=== PATIENT | male | born 1970 | race African-American/Black ===

== ENCOUNTER 2016-07-20 19:08 | Emergency (ER) ==
--- NOTE | 2016-07-20 21:09 | PROVIDER DOCUMENTATION ---
HPI-Musculoskeletal Pain/Inj - GENERAL Source: patient - HX OF PRESENT ILLNESS-MUSKULOSKELTAL Quality of Pain: reports: aching, cramping Severity in ED: moderate Onset/Duration: 1 week ago Timing: still present, getting worse Modifying Factors: improves with: immobilization, lying down. worse with: exercise, massage, movement, palpation Any recent injury?: No - LOWER EXTREMITY PAIN/INJURY Lower Extremities Pain: knee: right Context / Method of Injury: reports: unknown Associated Symptoms: reports: numbness in legs/feet, weakness in legs/feet. denies: loss of bladder control, loss of bowel control, lower back pain, muscle spasms, sensory/motor loss, tingling in legs/feet <Rio Rg - Last Filed: 07/20/16 21:17> <Maricel Rios - Last Filed: 07/20/16 21:39> - GENERAL Chief Complaint: Extremity Pain Stated Complaint: RT KNEE PAIN Time Seen by Provider: 07/20/16 20:53 - HX OF PRESENT ILLNESS-MUSKULOSKELTAL Nature of Presenting Problem: Pt is a 45 yom who presents to ER with CC of R knee pain that has gotten worse over the past week. Pt is morbidly obese and denies any injury that could cause his pain. Pt reports that it is becoming increasingly difficult to bear weight on his R leg and that it hurts most when he's trying to press the gas pedal in his car. (Rio Rg) Review of Systems - Adult - REVIEW OF SYSTEMS - ADULT Constitutional: denies: chills, fever, fatique, night sweats, weight gain, weight loss Eyes: reports: no symptoms reported Ears, Nose, Mouth & Throat: reports: no symptoms reported Cardiovascular: denies: chest pain, edema, heart murmur, irregular heart rate, orthopnea, palpitations, poor circulation, PND, syncope Respiratory: denies: chronic cough, cough, dyspnea on exertion, excessive sputum production, hemoptysis, pleurisy, shortness of breath, wheezing Gastrointestinal: reports: no symptoms reported Genitourinary: reports: no symptoms reported Musculoskeletal: reports: bone pain, frequent leg cramps, joint pain, muscle aches, muscle weakness. denies: back pain, joint swelling, neck pain Integumentary: reports: no symptoms reported Neurological: reports: no symptoms reported Psychiatric: reports: no symptoms reported Endocrine: reports: no symptoms reported Hematologic/Lymphatic: reports: no symptoms reported Allergic/Immunologic: reports: no symptoms reported All Other Systems: Reviewed and Negative <Rio Rg - Last Filed: 07/20/16 21:17> Past History - Adult - PAST MEDICAL HISTORY-ADULT Review of Records: reports: Nursing Assessment Review, Medications Reviewed Cardiovascular: reports: HTN. denies: cardiac disease - IMMUNIZATION STATUS Childhood Immunizations: See Nurse Assessment Flu Vaccine: See Nurse Assessment - FAMILY HISTORY Family History: other (no hz of gout or other arthropathy) <Eleonora Rgsh - Last Filed: 07/20/16 21:17> Physical Exam-Injury Related - Physical Exam-Injury Related Initial Vital Signs Reviewed: Yes General Appearance: appears well, alert, moderate distress, obese. negative: cachetic, thin, slow to respond, obtunded, combative Respiratory: chest non-tender, lungs clear, normal breath sounds. negative: respiratory distress, decreased breath sounds, accessory muscle use, wheezing Cardiovascular: normal peripheral pulses, regular rate, rhythm. negative: bradycardia, tachycardia, irregularly irregular Peripheral Pulses: radial (R): 2+, radial (L): 2+, carotid (R): 2+, carotid (L) : 2+, femoral (R): 2+, femoral (L): 2+, dorsalis-pedis (R): 2+, dorsalis-pedis ( L): 2+ Back Exam: no CVA tenderness, no vertebral tenderness. negative: CVA tenderness , decreased range of motion, muscle spasm, swelling, vertebral tenderness Extremity: tenderness (anterior R knee tenderness on palpation). negative: normal range of motion, non-tender, normal gait, deformity, erythema, inflammation, pulse deficit, pedal edema, slow capillary refill, swelling (Pt is too obese to appreciate any acute swelling) Integumentary: normal color, warm/dry, tenderness. negative: ecchymosis, erythema, swelling, warm, abrasion, contusion(s), laceration Neurologic: grossly normal, no motor/sensory deficits. negative: facial droop, focal weakness, motor weakness, sensory deficit Psych/Mental Status: normal thought content, normal thought process, oriented x 3, anxious <RgRio - Last Filed: 07/20/16 21:17> Progress <Rio Rg - Last Filed: 07/20/16 21:17> - XRAY 1 XRAY: Right XRAY Study: Knee Impression: Need Further Study (possible tibial plateau fx? reviewed c Dr. Garcia) - CT/MRI 1 CT Study: Lower Ext Impression: Normal (no fx per radiology) <Maricel Rios - Last Filed: 07/20/16 21:39> - PLAN OF CARE/RESULTS Progress/Plan/Lab Results: POC: X-ray/CT (Rio Rg) Vital Signs Temp Pulse Resp BP Pulse Ox 07/20/16 19:27 98.4 F 85 18 179/90 100 No Known Allergies Allergy (Verified 07/20/16 20:41) Cholecalciferol (Vitamin D3) [Vitamin D3] 5,000 unit PO 07/20/16 Orders Category Date Time Status EXTREM LOWER W/O CONTRAST [CT] Stat Exams 07/20/16 21:02 Taken KNEE 3 VIEWS RIGHT [RAD] Stat Exams 07/20/16 19:37 Taken (Maricel Rios) Procedures - SPLINTING Right Lower Extremity Pre-Procedure Neurovascular Exam: Intact Pre-Fabricated Splint: Basilio Wrap Applied By: ED Nurse Assisted By: musical engineer Post Procedure Neurovascular Exam: Intact <Maricel Rios - Last Filed: 07/20/16 21:39> Departure <Rio Rg - Last Filed: 07/20/16 21:17> - Departure Time of Disposition Order: 21:37 Certified Medical Emergency: Emergent <Maricel Rios - Last Filed: 07/20/16 21:39> - Departure DIAGNOSIS: Knee pain, right Qualifiers: Chronicity: acute Qualified Code(s): M25.561 - Pain in right knee Disposition: HOME 01 Condition: Stable Additional Instructions: Follow up with Dr. Schroeder, orthopedic if you continue to have pain ED Follow Up Instructions: You have been treated by a care provider in the Emergency Department. These instructions are being provided to you so you can have an understanding of how to care for yourself upon discharge. Upon discharge from the Emergency Department, you are responsible for making arrangements for follow-up care by a physician of your choice. Take all prescribed medications as directed. Return to the Emergency Department immediately for any new or worsening symptoms. You may call the Physician Referral phone number at [phone] to obtain a list of Physicians who are taking new patients. Prescriptions: Diclofenac Sodium 50 mg PO Q8-12H PRN PRN #30 tablet.dr PALMA Reason: Pain Cyclobenzaprine [Flexeril] 10 mg PO TID #20 tablet Famotidine [Pepcid] 20 mg PO DAILY #20 tablet Referrals: None,PCP [Primary Care Provider] - Veronica Schroeder MD [STAFF PHYSICIAN] - Attestation - Scribe Verification/Attestation Scribe:: Rio Rg Acting as Scribe for:: Maricel Rios Scribe documention review:: This chart was documented by a scribe and accurately reflects the service the provider performed and the decisions made by the provider. <Rio Rg - Last Filed: 07/20/16 21:17> - Physician/ TYLER Attestation Patient care was provided by Advanced Practice Provider:: Yes Advanced Practice Provider documentation review:: The Mid-level provider documentation, treatment plan and medical decision making was reviewed by the physician who agrees with all treatment and medical decision making by the MLP. <Maricel Rios - Last Filed: 07/20/16 21:39> Physician Attestation
[2016-07-20] MEDS ORDERED: NORCO-5 PO ONE (21:36)
[2016-07-20] MEDS ORDERED: MOTRIN PO ONE (21:41)
[2016-07-20 21:52] VITALS: BP 180/84
--- NOTE | 2016-07-21 07:49 | Diag Imaging Result Document ---
PROCEDURE NAME: KNEE 3 VIEWS RIGHT - 07/20/2016 RIGHT KNEE THREE VIEWS: FINDINGS: There is bone spurring to the patella. No fracture. No dislocation. IMPRESSION: No acute bony injury.
--- NOTE | 2016-07-21 08:17 | Diag Imaging Result Document ---
PROCEDURE NAME: EXTREM LOWER W/O CONTRAST - 07/20/2016 CT OF THE RIGHT KNEE, 07/20/2016: COMPARISON: X-rays from earlier. FINDINGS: Bones are intact and normally aligned. No fracture or subluxation. There is rather severe degenerative spurring at the patella, mostly at the tendinous insertion sites. The ACL and PCL appeared to be intact. Other ligamentous structures are intact as well. There is degenerative narrowing of the medial joint space. IMPRESSION: No fracture or acute injury. Significant degeneration of the knee mostly at the patella and the medial joint compartment.
== END 2016-07-20 21:52 | disposition home or self-care (01) ==
LOC: ED 19:08
DX: M25.561 Pain in right knee (principal); E66.01 Morbid (severe) obesity due to excess calories; M79.1 Myalgia; M62.81 Muscle weakness (generalized); I10 Essential (primary) hypertension
CPT/HCPCS: 73700

== ENCOUNTER 2018-11-07 12:45 | Observation (INO) ==
--- NOTE | 2018-11-07 13:14 | Diag Imaging Result Doc PS360 ---
EXAM: CHEST-1 VIEW HISTORY: chest pain TECHNIQUE: Portable upright chest single view COMPARISON: None. FINDINGS: The lungs are well expanded. The heart is mildly prominent. The vessels are not distended. There are no infiltrates. No effusion identified. IMPRESSION: Mild cardiomegaly. Electronically signed by Alex Zazueta 11/07/2018 1:12 PM
[2018-11-07 13:49] LABS: BASO# 0.01 X1000 (0.0-0.2); BASO% 0.1 % (0.0-0.8); EOS# 0.06 X1000 (0.0-0.7); EOS% 0.7 % (0.0-10.0); HEMATOCRIT 40.3 % (42.0-52.0); HEMOGLOBIN 13.3 g/dL (14.0-18.0); IMM GRAN# 0.02 X1000 (0.0-0.04); IMM GRAN% 0.2 % (0.0-0.5); LYMPH# 1.88 X1000 (1.2-3.4); LYMPH% 20.8 % (20.5-51.1); MCH 25.9 PG (27-31); MCV 78.4 FL (81-99); MONO# 1.09 X1000 (0.11-0.59); MPV 10.9 FL (7.4-10.4); NEUT% 66.2 % (42.2-75.2); PLT 342 X1000 (130-400); RBC 5.14 XMIL (4.7-6.1); RDW 14.2 % (11.5-14.5); WBC 9.06 X1000 (4.8-10.8)
--- NOTE | 2018-11-07 13:59 | EKG Report ---
Test Performed on : 11/07/2018 12:53:41 PM Test Reason : chest pain Blood Pressure : / mmHG Vent. Rate : 103 BPM Atrial Rate : 103 BPM P-R Int : 172 ms QRS Dur : 114 ms QT Int : 376 ms P-R-T Axes : 067 -53 063 degrees QTc Int : 492 ms Sinus tachycardia. Pulmonary disease pattern Left anterior fascicular block Abnormal ECG No previous ECGs available Unconfirmed Result
[2018-11-07 14:08] LABS: AGAP 11; BUN 12 mg/dL (8-22); CHLORIDE 102 mmol/L (98-107); COSMO 275; CREATININE 0.8 mg/dL (0.7-1.2); ESTIMATED GFR > 60; GLUCOSE 126 mg/dL (70-104); POTASSIUM 3.8 mmol/L (3.5-5.1); SODIUM 137 mmol/L (136-145); TCO2 24 mmol/L (25-35)
[2018-11-07 14:09] LABS: ALBUMIN 3.5 g/dL (3.5-5.0); ALKALINE PHOSPHATASE 95 U/L (32-122); GOT 19 U/L (10-34); GPT 22 U/L (10-44); TOTAL BILIRUBIN 0.76 mg/dL (0.20-1.00); TOTAL PROTEIN 6.9 g/dL (6.3-8.3)
--- NOTE | 2018-11-07 14:41 | PROVIDER DOCUMENTATION ---
This chart was entered by Mirta England Scribe, acting as scribe for Catrachito Frederick MD. 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 States pain has been intermittent for 1 week. Does not report shortness of breath or nausea. Location: reports: other (generalized chest) Chest Pain Radiation: reports: arms (left) Quality of Pain: reports: pressure Severity in ED: mild Onset/Duration: 1/2 hour ago Timing: still present Context/Activities at Onset: reports: light activity Associated Symptoms: reports: diaphoresis Aspirin Treatment Today: no aspirin today Similar Symptoms Previously?: Yes Recently Seen Here or By Another Healthcare Provider: No Review of Systems - Adult - REVIEW OF SYSTEMS - ADULT Constitutional: reports: no symptoms reported. denies: chills, fever, fatique Eyes: reports: no symptoms reported Ears, Nose, Mouth & Throat: reports: no symptoms reported Cardiovascular: reports: see HPI, chest pain. denies: heart murmur, palpitations Respiratory: reports: no symptoms reported. denies: cough, shortness of breath, wheezing Gastrointestinal: reports: no symptoms reported Genitourinary: reports: no symptoms reported Musculoskeletal: reports: no symptoms reported Integumentary: reports: no symptoms reported Neurological: reports: no symptoms reported Psychiatric: reports: no symptoms reported Endocrine: reports: no symptoms reported Hematologic/Lymphatic: reports: no symptoms reported Allergic/Immunologic: reports: no symptoms reported All Other Systems: Reviewed and Negative Past History - Adult - PAST MEDICAL HISTORY-ADULT Review of Records: reports: Old Records Reviewed, Nursing Assessment Review, Medications Reviewed, Social history reviewed & non-contributory. Major Childhood Illnesses: reports: denies history Cardiovascular: reports: HTN. denies: cardiac disease Respiratory: reports: denies history Gastrointestinal: reports: denies history Obstetrical/Gynecological: reports: denies history Genitourinary: reports: denies history Musculoskeletal: reports: denies history Neurological: reports: denies history Psychiatric: reports: denies history Endocrine/Immune: reports: denies history Other Conditions: reports: denies history - PRIOR SURGERIES/PROCEDURES Surgical/Procedure History: reports: reviewed, not pertinent - IMMUNIZATION STATUS Childhood Immunizations: See Nurse Assessment Flu Vaccine: See Nurse Assessment - FAMILY HISTORY Family History: other (no hz of gout or other arthropathy) - SOCIAL HISTORY Smoking: denies Substance Use: denies Physical Exam-General - PHYSICAL EXAM-ADULT Initial Vital Signs Reviewed: Yes - CONSTITUTIONAL General Appearance: alert, no apparent distress, obese. negative: lethargic - HEAD, EARS, NOSE, MOUTH & THROAT HENMT: normocephalic/atraumatic, moist mucous membranes. negative: angioedema, hearing deficit - RESPIRATORY Respiratory: chest non-tender, lungs clear, normal breath sounds. negative: rales, rhonchi, wheezing - CARDIOVASCULAR Cardiovascular: normal peripheral pulses, regular rate, rhythm. negative: tachycardia, systolic murmur - GASTROINTESTINAL (ABDOMEN) Abdominal Exam: normal bowel sounds, non tender, soft. negative: guarding, rebound - MUSCULOSKELETAL Extremity: non-tender, normal inspection. negative: deformity, erythema, swelling - SKIN Integumentary: normal color, normal turgor, warm/dry. negative: ecchymosis, erythema, jaundice, rash - NEUROLOGIC Neurologic: grossly normal. negative: aphasia, facial droop - PSYCHIATRIC Psych/Mental Status: normal mood/affect, oriented x 3. negative: anxious - HEART Score HEART Score: History: Slightly Suspicious HEART Score: ECG: Non-Specific Repolarization Disturbance/LBBB/PM HEART Score: Age: 45-65 Years HEART Score: Risk Factors for Atherosclerotic Disease: 1 or 2 Risk Factors HEART Score: Troponin: < or = Normal Limit Total HEART Score:: 3 Progress - PLAN OF CARE/RESULTS Result Diagrams: 11/07/18 13:30 11/07/18 13:30 - EKG 1 Time of EKG reading by physician:: 12:53 EKG Read and Signed by:: Catrachito Frederick EKG Interpretation (*Must complete 3 of following elements*): Abnormal Rate: 103 Rhythm: sinus tachycardia [place]: normal [place] Interval: normal Comments: pulmonary disease pattern; left anterior fascicular block 2 Time of EKG reading by physician:: 17:30 EKG Read and Signed by:: Catrachito Frederick EKG Interpretation (*Must complete 3 of following elements*): Abnormal (nonspecific intraventricular conduction delay; nonspecific T wave abnormality.) Rate: 94 Rhythm: normal sinus rhythm [place]: left [place] Interval: normal Comments: possible left atrial enlargement; pulmonary disease pattern; - XRAY 1 XRAY Study: Chest Impression: See EMR Report ( EXAM: CHEST-1 VIEW HISTORY: chest pain TECHNIQUE: Portable upright chest single view COMPARISON: None. FINDINGS: The lungs are well expanded. The heart is mildly prominent. The vessels are not distended. There are no infiltrates. No effusion identified. IMPRESSION: Mild cardiomegaly. Electronically signed by Alex Zazueta 11/07/2018 1:12 PM 11/07/18 1312 Interpreting Physician: Alex Zazueta MD Dictated Date/Time: 11/07/18 1311 cc: Catrachito Frederick MD; None,PCP) - CONSULTS/PCP/HOSPITALIST Notification #1 *Consult/PCP/Hospitalist*: Summer for Dr Andino Time Discussed: 14:40 Consult Disposition: Will see in ED, Admit Departure - Departure Date of Disposition Decision: 11/07/18 Time of Disposition Decision: 14:40 DIAGNOSIS: Chest pain, CHF (congestive heart failure) Disposition: ADMITTED INPATIENT 09 Certified Medical Emergency: Emergent Condition: Fair - Critical Care Note This patient required my direct & personal management of CC.: No Attestation - Physician/ TYLER Attestation Patient care was provided by Advanced Practice Provider:: No The physician spent face to face time with patient:: Yes Advanced Practice Provider documentation review:: Supervising physician onsite and consulted in the evaluation and care of this patient. The physician did have a face to face encounter with the patient. This chart was documented by the indicated scribe, (Mirta England Scribe) and accurately reflects the services I performed and decisions made by me, Catrachito Frederick MD, as attested by the provider's signature.
[2018-11-07] MEDS ORDERED: TYLENOL PO PRN (14:52)
[2018-11-07] MEDS ORDERED: ZOFRAN IV PRN (14:52)
[2018-11-07] MEDS ORDERED: NITROGLYCERIN SL PRN (14:52)
[2018-11-07] MEDS ORDERED: LOVENOX SUBQ SCH (15:00)
[2018-11-07] MEDS ORDERED: ASPIRIN PO STA (17:14)
[2018-11-07] MEDS ORDERED: LABETALOL IV PRN (17:14)
[2018-11-07] MEDS ORDERED: LABETALOL IV ONE (17:14)
[2018-11-07] MEDS ORDERED: LOVENOX SUBQ ONE (17:30)
[2018-11-07] MEDS: LOPRESSOR PO SCH ×2 (17:43→23:41)
[2018-11-08 05:16] LABS: BASO# 0.02 X1000 (0.0-0.2); BASO% 0.2 % (0.0-0.8); EOS# 0.08 X1000 (0.0-0.7); EOS% 0.8 % (0.0-10.0); HEMATOCRIT 39.7 % (42.0-52.0); HEMOGLOBIN 13.3 g/dL (14.0-18.0); IMM GRAN# 0.02 X1000 (0.0-0.04); IMM GRAN% 0.2 % (0.0-0.5); LYMPH# 2.52 X1000 (1.2-3.4); LYMPH% 25.2 % (20.5-51.1); MCH 26.2 PG (27-31); MCHC 33.5 g/dL (33-37); MCV 78.3 FL (81-99); MONO# 1.34 X1000 (0.11-0.59); MONO% 13.4 % (1.7-9.3); MPV 10.8 FL (7.4-10.4); NEUT# 6.02 X1000 (1.4-6.5); NEUT% 60.2 % (42.2-75.2); PLT 319 X1000 (130-400); RBC 5.07 XMIL (4.7-6.1); RDW 14.2 % (11.5-14.5)
[2018-11-08 05:23] LABS: HEMOGLOBIN A1C 5.5 % (4.8-6.0)
[2018-11-08 05:24] LABS: AGAP 8; ALBUMIN 3.4 g/dL (3.5-5.0); ALKALINE PHOSPHATASE 94 U/L (32-122); BUN 12 mg/dL (8-22); CALCIUM 9.2 mg/dL (8.8-10.2); CHLORIDE 105 mmol/L (98-107); CHOLESTEROL 104 mg/dL (0-200); COSMO 276; CREATININE 0.7 mg/dL (0.7-1.2); ESTIMATED GFR > 60; GLUCOSE 103 mg/dL (70-104); GOT 16 U/L (10-34); GPT 20 U/L (10-44); HDL 36 mg/dL (35-55); LDL 58 mg/dL; POTASSIUM 3.8 mmol/L (3.5-5.1); SODIUM 138 mmol/L (136-145); TCO2 25 mmol/L (25-35); TOTAL BILIRUBIN 0.66 mg/dL (0.20-1.00); TOTAL PROTEIN 6.9 g/dL (6.3-8.3); TRIGLYCERIDES 48 mg/dL (39-160); VLDL 10 mg/dL
[2018-11-08] MEDS ORDERED: LOVENOX SUBQ SCH ×2 (06:00)
[2018-11-08] MEDS ORDERED: PRILOSEC PO SCH (07:00)
--- NOTE | 2018-11-08 07:42 | EKG Report ---
Test Performed on : 11/07/2018 5:30:06 PM Test Reason : chest pain Blood Pressure : / mmHG Vent. Rate : 094 BPM Atrial Rate : 094 BPM P-R Int : 182 ms QRS Dur : 120 ms QT Int : 384 ms P-R-T Axes : 051 -43 021 degrees QTc Int : 480 ms Normal sinus rhythm. Possible Left atrial enlargement Left axis deviation Pulmonary disease pattern Nonspecific intraventricular conduction delay Nonspecific T wave abnormality Abnormal ECG When compared with ECG of 07-NOV-2018 12:53, (Unconfirmed) Nonspecific T wave abnormality now evident in Inferior leads Nonspecific T wave abnormality, worse in Lateral leads Unconfirmed Result
[2018-11-08] MEDS ORDERED: ASPIRIN PO SCH (09:00)
[2018-11-08] MEDS ORDERED: LEXISCAN ONE (09:00)
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
[2018-11-08] MEDS: ASPIRIN PO SCH (12:01)
[2018-11-08] MEDS: LOPRESSOR PO SCH ×2 (12:01→20:46)
[2018-11-08 12:46] LABS: IRON SATURATION 22 %; TIBC 219 ug/dL; TOTAL IRON 49 ug/dL (53-167); UNBOUND IRON 170 ug/dL (112-346)
--- NOTE | 2018-11-08 13:35 | Diag Imaging Result Document ---
PROCEDURE NAME: MYOCARDIAL PERF SCAN, STR/REST - 11/08/2018 LEXISCAN CARDIOLITE STRESS TEST: Lexiscan was infused per standard protocol. There was no chest pain. Stress electrocardiogram was negative for ischemia. Following Lexiscan infusion, Cardiolite was injected. Gated SPECT images were obtained in standard views. Images revealed left ventricle was dilated. There is severe grade large sized fixed defect in the inferior wall and inferolateral wall diagnostic of infarct or scar. There is no definite evidence of ischemia. Left ventricular ejection fraction by gated SPECT was 55%. There is inferior wall hypokinesis. There is significant chest wall attenuation. CONCLUSIONS: 1. No chest pain. 2. Negative Lexiscan stress electrocardiogram. 3. Myocardial infusion images revealed no evidence of ischemia. 4. Left ventricle is dilated. There is severe grade fixed defect in the inferior wall and inferolateral wall diagnostic of infarct or scar. Left ventricular ejection fraction 55%. cc: MD Bear Magaña MD
--- NOTE | 2018-11-08 14:47 | HISTORY AND PHYSICAL ---
Addendum to History and Physical dictated by the nurse practitioner. I agree with most components of history, physical, assessment and plan. In brief, Mr. Patel is a 48-year-old morbidly obese man with past medical history of essential hypertension not on medication since last 2 years since his blood pressure was detected to be normal after about 3 years of treatment who comes in with episodes of central chest pain which started about 2 hours prior to presentation. The patient had a first time chest pain episode about a week ago when he was driving located in the center of the chest associated with diaphoresis and worsened by physical exertion and walking, and relieved by rest. The initial chest pain episode lasted for about 6 to 8 hours, and he did not seek medical attention, and it got better on it's own. Since then, he has had 1 to 2 such episodes which went away within a few minutes to hours. Today morning at 11:30, he again started experiencing chest pain in the center of the chest about 7 out of 10 in intensity of a compressing nature radiating to the back, left shoulder and left arm associated with diaphoresis so he came to the emergency room. In the emergency room, he was found to be hypertensive with systolic blood pressure more than 180. EKG had sinus tachycardia with left axis deviation and negative troponin's. Hospitalist Service was consulted for further management. By the time the patient has not received any aspirin or nitroglycerin. His chest pain has been relieved within 30 minutes after coming to the emergency room. PHYSICAL EXAMINATION: VITAL SIGNS: Currently, he is afebrile to touch. Pulse of 96 on monitor. Respiratory rate 24. Blood pressure is 180/100. He is saturating 97% on room air. GENERAL: Morbidly obese not in acute distress. He appears anxious. LUNGS: Air entry bilaterally equal. No wheezing, rhonchi or crackles. HEART: S1 and S2 normal. No murmur, rub or gallop. ABDOMEN: Obese. Soft. Nontender. EXTREMITIES: No lower extremity edema. LABORATORY: Labs are suggestive of microcytic anemia. Normal platelet count. Normal coagulation profile. Normal kidney function. MICROIMAGING: Chest x-ray was unremarkable. EKG had a sinus tachycardia with left axis deviation. ASSESSMENT AND PLAN: 1. Anginal chest pain with suspicion of unstable angina with age, male gender, morbid obesity, and essential hypertension being risk factors. I will give the patient a total of 120 mg of subcutaneous enoxaparin. We will follow up with serial troponin's. Give him stat aspirin, as needed nitroglycerin, and consult Cardiology. I am also ordering Lexiscan for tomorrow. I would appreciate Cardiology recommendations if he would need coronary angiography instead of just a Lexiscan. 2. Essential hypertension. I will give him intravenous labetalol and start him on p.o. metoprolol. I will also follow up with lipid panel and hemoglobin A1c. 3. Morbid obesity. Though the patient reports he has about more than 50 pounds of weight loss over 4 months, some of which is intentional, he does have microcytic anemia. He denies family history of any cancer except in his great grandmother. I will give him outpatient GI follow up for colon cancer screening. 4. Disposition: I will continue to monitor patient in the telemetry unit. Plan of care was discussed with the patient. All of his questions have been answered. cc: Bear Trejo MD MTDD
[2018-11-09] MEDS ORDERED: LOPRESSOR PO SCH (09:00)
[2018-11-09] MEDS: ASPIRIN PO SCH (09:23)
[2018-11-09 11:31] VITALS: BP 155/79
--- NOTE | 2018-11-10 08:39 | DISCHARGE SUMMARY ---
ADMISSION DATE: 11/07/2018 DISCHARGE DATE: 11/09/2018 DISCHARGE DISPOSITION: Home. DISCHARGE CONDITION: Hemodynamically stable. The patient denies any chest pain, shortness of breath, palpitations. He underwent stress test. I did discuss with him of the results of the stress test, the fixed scar which there is a possibility that it could be related to attenuation defect considering his thick chest wall. I also told him about following up with heart doctor if he has recurrence of his chest pain. DISCHARGE DIAGNOSES: 1. Anginal chest pain with no inducible ischemia on myocardial perfusion stress test. 2. Untreated essential hypertension with suspected hypertensive emergency. 3. Morbid obesity. 4. Microcytic anemia with unintentional weight loss. 5. Morbid obesity. DISCHARGE MEDICATION: 1. Metoprolol 25 mg b.i.d. 60 tablets with 1 refill has been prescribed. 2. Nitroglycerin sublingual 0.4 mg sublingually every 5 minute as needed for chest pain. CONSULTATIONS DURING HOSPITALIZATION: Cardiology- Dr. Chiang. IMAGING DURING HOSPITAL ADMISSION: Chest x-ray on admission had mild cardiomegaly. Myocardial perfusion image suggested no chest pain. It was negative. Lexiscan stress electrocardiogram there was no evidence of ischemia. Left ventricle was dilated with severe grade fixed defect in the inferior wall and inferolateral wall diagnostic of infarct or scar with ejection fraction of 55%. Next EKG on admission had sinus tachycardia with left anterior fascicular block and left axis deviation with pulmonary disease pattern. VITALS: At the time of discharge temperature 97.9 degrees, pulse 75, respiratory rate 22, blood pressure 151/81, saturating 99% room air. PHYSICAL EXAMINATION: The patient denies any chest pain, shortness of breath, oral cavity is moist. Air entry bilaterally equal. No wheeze, rhonchi or crackles. S1 normal no murmur or gallop. The abdomen is soft, nontender. No lower extremity edema. Neurologic- He is alert oriented x3. SIGNIFICANT LABS: During hospital discharge hemoglobin 13.3, RBC count 500,000, platelet count 319,000, MCV 78, potassium 3.8, magnesium 2, BUN 12, creatinine 0.7. Troponins during hospital admission was less than 0.010 x 3. His total cholesterol was 104 with LDL 58. Significant micro during hospitalization, none. HOSPITAL COURSE SUMMARY: Mr. Patel is a 48-year-old man with past history of morbid obesity, untreated essential hypertension diagnosed 5 years ago, who came in with chief complaints of intermittent chest pain of about 7 days' duration. The patient's chest pain was located in the center of the chest. Apparently patient's first chest pain episode happened about 7 days ago when he was driving, which was located in the center of the chest associated with diaphoresis and slight radiation towards his left shoulder, which resolved without any intervention in about 30 minutes. Since then, he has had 2 such episodes. On the day of presentation again, he started experiencing chest pain in the center of the chest. This time around, radiating to left shoulder, left back associated with profuse diaphoresis and nausea, so he decided to come to the emergency room. He did experience this chest pain before. In the emergency room, his vitals were unremarkable. EKG had normal sinus rhythm without any ST depressions or T-wave inversions. His troponins were negative. Considering his risk factor of morbid obesity, male gender, untreated essential hypertension, he was started on aspirin, metoprolol, as needed nitroglycerin and initially therapeutic Lovenox for suspected unstable angina and Cardiology was consulted. The next day, he underwent stress test. Stress imaging did have dilated left ventricle with ejection fraction of 55% with an area on the inferior wall which had fixed defect which looked like a scar. There was a possibility that this was just an attenuation because of his thick body chest wall, according to my discussion with the counter waiter. While inside the hospital he did not experienced any of chest pain episode and his blood pressure was well controlled on metoprolol. He was provided detailed instructions about lifestyle modification, following up with credit control officer for his microcytic anemia and unintentional weight loss. At the time of discharge, his blood pressure was well controlled on metoprolol. Prescription was given. He was also advised to follow up with a counter waiter if he would have recurrence of his chest pain. All of his questions were answered. Dietitian was also consulted to recommend lifestyle modification. TIME SPENT: More than 30 minutes spent in discharging this patient. cc: Bear Trejo MD
--- NOTE | 2018-11-10 16:22 | PROGRESS NOTE ---
DATE: 11/08/2018 INTERVAL HISTORY: He did not have any more chest pain episode at night time. He denies any shortness of breath or palpitations. We discussed about physical exam findings, stress test, and answered all of his questions. The patient is about to go for a Lexiscan today. PHYSICAL EXAMINATION: Vital signs: Temperature 98.3, pulse 75, respiratory rate 20, blood pressure 150/75, saturating 99% on room air. General: Does not appear in any distress. HEENT: Oral cavity is moist. No pallor, cyanosis, clubbing, or icterus. He is morbidly obese. Lungs: Air entry appears bilaterally equal. No wheeze, rhonchi, or crackles. Cardiovascular: S1, S2 normal. No murmur, rub, or gallop. Abdomen: Obese. Soft, nontender. Extremities: No lower extremity edema. Neurologic: He is alert and oriented x3. LABS: He does have microcytic anemia. Normal WBC. Normal platelet count. He does have normal electrolytes. His troponins have been negative. No new microbiological data. IMAGING: No new imaging. ASSESSMENT AND PLAN: 1. Typical chest pain with suspicion of unstable angina. 2. Essential untreated hypertension with suspected hypertensive emergency. 3. Morbid obesity. 4. Microcytic anemia. PLAN: Follow up with echocardiogram and Lexiscan results. Continue him on aspirin, metoprolol, and add labetalol. I will discontinue enoxaparin after nuclear medicine stress test, if that is unremarkable. Follow up with Cardiology recommendations. The patient was also advised about following up with [employer] site manager for routine age appropriate colon cancer screening. Plan of care discussed with him. All of his questions have been answered. cc: Bear Trejo MD MTDD
--- NOTE | 2018-11-11 07:33 | CARDIOLOGY CONSULTATION ---
DATE: 11/08/2018 CHIEF COMPLAINT: Chest pain. HISTORY: 48-year-old black gentleman who works for the [employer] who says that he has been having intermittent chest discomfort for the past several days. This appears to be more noticeable for the past couple of days. He felt that the pain was present when he got out of bed. It was intermittent most of the day across the anterior chest, radiated to the upper back. He felt fairly short of breath and he got worried about it. He came to the ER about 1:00 p.m. They did a chest x- ray that shows mild cardiomegaly. They did a number of cardiac enzymes, a total of 3. They are all negative. His EKG showed the pattern consistent with pulmonary disease. No acute ischemic changes. His pain has subsided. ProBNP was elevated at 608 picograms per mL. Normal is up to 138. BUN and creatinine were normal. His blood pressure upon presentation was elevated at 180/108. Pulse rate upon presentation was 104. Right now, he is more comfortable. PAST MEDICAL HISTORY: positive for hypertension. He has had no other major issues. He said he had some arthritis of his knees or arthralgia. The patient says he was morbidly obese and he has lost almost 80 pounds over the course of the past few months. PAST SURGICAL HISTORY: He has had some prior sinus surgery. FAMILY HISTORY: Mother has hypertension. SOCIAL HISTORY: The patient is presently living by himself because his is in a usp after several strokes and heart attacks. He has 3 grownup children. 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 He is not taking any home medicine. Currently his doctor has moved out of [place] and he is looking for a new doctor. He is not taking any prescription medicine. ALLERGIES: He is not allergic to medications. Review os Systems: multiple systems (10) interrogated. non contributory besides HPI. PHYSICAL EXAMINATION: VITAL SIGNS: Right now, blood pressure 162/77, temperature 98.3 degrees, pulse 80, respirations 18min GENERAL: He is awake, alert, oriented. No distress. HEENT: Unremarkable. CHEST: Clear to auscultation and percussion. HEART: Sounds are regular and rhythmic. No gallop or murmur. ABDOMEN: Nontender, obese. No masses or organomegaly. EXTREMITIES: Show good pulses. No peripheral edema. NEUROLOGICAL: Follows commands. Moves 4 extremities. LABORATORY DATA: Sodium 138, potassium 3.8, BUN 12, creatinine 0.7. LDL 58, HDL 36, total cholesterol 104, triglycerides 48. IMPRESSION: 1. Patient who presents with chest pain that is somewhat atypical. 2. Hypertension. 3. Morbidly obese. 4. Iron defficiency anemia. RECOMMENDATIONS: At this time, we will proceed with stress test, echocardiogram and we will give further advice. Of note, his laboratory work indicates that he has microcytic indices with microcytic anemia. I will check an iron level. He may need to have an upper endoscopy because he is likely to have ulcers in the esophagus or the stomach. Thank you for the opportunity to participate in his evaluation. cc: Lj Chiang MD MTDD
--- NOTE | 2018-11-11 12:43 | ECHO REPORT ---
ORDER DATE: 11/07/2018 INTERPRETING PHYSICIAN: Maximo Jon MD. ECHOCARDIOGRAPHIC MEASUREMENTS: 1. Interventricular septum 1.3. 2. Left ventricular posterior wall 1.2. 3. Diastolic diameter 5.8. 4. Left atrium 3.7. 5. Aorta 3.4. FINDINGS: 1. Technically suboptimal study, poor acoustic window. 2. Mitral valve was normal. 3. Pulmonic valve was normal. 4. Tricuspid valve was normal. 5. Aortic valve leaflets were trileaflet. 6. There is mild mitral regurgitation, mild tricuspid regurgitation. Peak velocity across the tricuspid valve less than 2 m/sec. Peak velocity across the aortic valve less than 2 m/sec by Doppler studies. There is no aortic stenosis or regurgitation. 7. Left ventricular cavity size was normal. Ejection fraction of 55 to 60 percent. Endocardium not well visualized in all views. 8. There is no pericardial effusion or obvious intracardiac mass or thrombus seen. cc: Maximo Jon MD
== END 2018-11-09 12:01 | disposition home or self-care (01) ==
LOC: ED 12:45 → EDIPHOLD 12:45 → 3S 11-08 04:26
PROVIDERS: ATTEND Internal Medicine
CPT/HCPCS: 71010; 71045; 78452; 80053; 80061; 82550; 82728; 83036; 83540; 83550; 83735; 83880; 84484; 85025; 85379; 85610; 85730; 93005; 93017; 93306; 94761; 96372; 96374; 99285; A9270; A9500; J1650; J2785